=== PATIENT | male | born 2000 | race Hispanic/Latino ===

== ENCOUNTER 2021-12-03 14:11 | Emergency (ER) | payer OTHER ==
[~2021-12-03] VITALS: Ht 177.8 cm; Wt 100.0 kg
[2021-12-03] MEDS ORDERED: holter ×2 (19:39→21:19)
[2021-12-03] MEDS ORDERED: ATIV2TAB PO ×2 (19:39→21:19)
[2021-12-03 19:46] LABS: BASO # 0.1 10^3/uL (0.0-0.2); BASO % 0.6 % (0.0-1.0); EOS # 0.2 10^3/uL (0.0-0.5); EOS % 1.5 % (0.0-3.0); HEMATOCRIT 45.7 % (42.0-52.0); HEMOGLOBIN 15.9 g/dl (13.5-17.5); LYMPH # 3.2 10^3/uL (1.5-5.0); MEAN CORPUSCULAR HEMOGLOBIN 28.8 pg (27.0-33.0); MEAN CORPUSCULAR HGB CONC 34.8 g/dl (32.0-36.5); MEAN CORPUSCULAR VOLUME 82.6 fl (80.0-96.0); MONO # 0.6 10^3/uL (0.0-0.8); NEUTROPHILS # 6.2 10^3/uL (1.5-8.5); NEUTROPHILS % 60.5 % (36.0-66.0); PLATELET COUNT, AUTOMATED 313 10^3/uL (150-450); RED BLOOD COUNT 5.53 10^6/uL (4.30-6.10); WHITE BLOOD COUNT 10.2 10^3/uL (4.0-10.0)
[2021-12-03 20:38] LABS: BLOOD UREA NITROGEN 14 MG/DL (7-18); CALCIUM LEVEL 10.1 MG/DL (8.5-10.1); CARBON DIOXIDE LEVEL 23 MEQ/L (21-32); CHLORIDE LEVEL 108 MEQ/L (98-107); CREATININE FOR GFR 0.91 MG/DL (0.70-1.30); GLOMERULAR FILTRATION RATE > 60.0 (>60); GLUCOSE, FASTING 88 MG/DL (70-100); MAGNESIUM LEVEL 2.4 MG/DL (1.8-2.4); SODIUM LEVEL 138 MEQ/L (136-145)
[2021-12-03 20:45] VITALS: BP 149/78
== END 2021-12-04 02:17 | disposition home or self-care (01) ==
LOC: M ED 14:11
DX: F41.9 Anxiety disorder, unspecified (principal); F41.0 Panic disorder [episodic paroxysmal anxiety]; R00.2 Palpitations; I45.10 Unspecified right bundle-branch block; F17.200 Nicotine dependence, unspecified, uncomplicated; F10.10 Alcohol abuse, uncomplicated; Z79.899 Other long term (current) drug therapy